=== PATIENT | female | born 2000 | race Caucasian/White ===

== ENCOUNTER 2022-03-05 13:40 | Emergency (ER) | payer OTHER ==
[~2022-03-05] VITALS: Ht 154.9 cm; Wt 100.7 kg
[2022-03-05 13:52] VITALS: BP 89/57
--- NOTE | 2022-03-05 14:30 | NUR ---
21 y/o female c/o covid like symptoms x 3 days including sore throat, cough, headache, runny nose, fatigue, and body aches. Currently living with mother who recently tested positive for covid-19. Tested at [facility] on Wednesday, results not back yet. Took Dayquil with some mild relief.
--- NOTE | 2022-03-05 14:35 | NUR ---
Bret LEZAMA at bedside for evaluation
--- NOTE | 2022-03-05 14:48 | NUR ---
swabbed for covid (raquel) walked to lab
[2022-03-05] MEDS ORDERED: IBUP-2213 PO (15:03)
[2022-03-05] MEDS ORDERED: BENZ-300 PO (15:03)
[2022-03-05] MEDS ORDERED: PROM118S5 PO (15:03)
[2022-03-05 15:25] VITALS: BP 126/76
--- NOTE | 2022-03-05 15:25 | NUR ---
Patient discharged with v/s stable. Written and verbal after care instructions about Viral infection given and explained. Patient alert, oriented and verbalized understanding of instructions. Ambulatory with steady gait. All questions addressed prior to discharge. ID band removed. Patient advised to follow up with PMD. Rx of Promethazine-DM, Ibuprofen, Cepacol given. Patient educated on indication of medication including possible reaction and side effects. Opportunity to ask questions provided and answered.
== END 2022-03-05 15:25 | disposition home or self-care (01) ==
LOC: MED 13:40
DX: B34.9 Viral infection, unspecified (principal); R05.9 Cough, unspecified; M79.10 Myalgia, unspecified site; R68.83 Chills (without fever); R11.0 Nausea
CPT/HCPCS: 99283